=== PATIENT | male | born 1960 | race Caucasian/White ===

== ENCOUNTER 2020-03-16 16:11 | Emergency (ER) | payer OTHER, SELFPAY ==
--- NOTE | ~2020-03-16 | XR_ITS ---
XR hand RT min 3V 03/16/2020 16:43 Indication: Right hand swelling and redness Procedure: 3 views right hand Comparison: 02/25/2015 Findings: No acute fracture or traumatic malalignment. There are degenerative changes of the first MC P joint. There is a side plate and screws transfixing the distal radius. There is an ulnar styloid av ulsion fracture which is chronic. No focal soft tissue abnormality. No radiopaque foreign bodies. Impression: 1: No acute bone or joint abnormality. Reviewed, dictated and finalized at location A. Impression: 1: No acute bone or joint abnormality.
[2020-03-16 16:26] VITALS: BP 111/73; PULSE 120; RESP 18; TEMP 36.4; O2SAT 98
--- NOTE | 2020-03-16 16:31 | ED.UPPEXIN ---
HPI - Extremity Injury (Upper) General Chief Complaint: Extremity Injury, Upper Stated Complaint: swollen right hand Time Seen by Provider: 03/16/20 16:32 Source: patient and RN notes reviewed Mode of arrival: ambulatory Limitations: no limitations History of Present Illness HPI narrative: 59-year-old male presents with concern for right hand swelling, redness, pain. He reports he noticed that after working in his barn, is unsure if he injured himself or was bitten by something. Reports swelling in digits, dorsal aspect of hand. Denies fever, malaise MD complaint: injury to: right and hand Related Data Home Medications Medication Instructions Recorded Confirmed lisinopril 5 mg PO DAILY 03/16/20 03/16/20 Allergies Allergy/AdvReac Type Severity Reaction Status Date / Time No Known Allergies Allergy Verified 03/16/20 17:07 Review of Systems Review of Systems: Narrative: CONSTITUTIONAL: Denies malaise, chills, sweats, or fever. CARDIOVASCULAR: Denies chest pain, palpitations RESPIRATORY: Denies cough or dyspnea. GASTROINTESTINAL: Denies abdominal pain, nausea, vomiting, diarrhea SKIN: Reports redness, swelling of the right hand MUSCULOSKELETAL: Reports right hand pain NEUROLOGIC: Denies numbness, weakness. All systems reviewed & are unremarkable except as noted in HPI and below PMFSH Social History Social History (System 02/14/20 @ 10:27 by Erin Remy) Smoking status: Current every day smoker Alcohol intake: current Gender identity (if verbalized by the patient): Male Comments At time of signature, agree with nursing past medical, surgical, social and family history. There is no relevant family history pertinent to the presenting complaint Exam Narrative: Exam Narrative: GENERAL: Well-appearing, well-nourished, and in no acute distress. HEAD: Normocephalic EYES: PERRLA, conjunctivae clear NECK: Supple. CHEST: Speaks in full sentences. No respiratory distress. HEART: Regular rate and rhythm. Normal and equal peripheral pulses. EXTREMITIES: Right hand and digits of hand have normal strength and sensation. 5/5 strength with digit flexion, extension. Range of motion normal. No clubbing, cyanosis noted. Dorsal tenderness, particularly at the base of the second digit of the right hand. Normal digital cascade with flexion of fingers, median, ulnar and radial nerve intact. Normal sensation of each side of finger. Can perform 'okay' sign, 'cross over finger test of index and middle fingers' and 'thumbs up' sign. No scissoring. Normal thumb opposition. Good capillary refill and radial pulse. Distal capillary refill <3 seconds. SKIN: Swelling, edema with fluctuation noted above the base of the second digit of the right hand. Erythema with swelling noted to the dorsal aspect of the hand digits 1, 2, 3, 4, 5 NEURO: Alert and oriented x3. PSYCH: Normal mood and affect Course Course Emergency Course: Patient is aware of diagnosis, understands and agrees to treatment plan. Anticipatory guidance given. Patient agrees to follow-up as directed and is aware of reasons to seek care at the emergency department. Portions of this record may have been created with voice recognition software Vital Signs Vital signs: Vital Signs Temperature 97.6 F 03/16/20 16:26 Pulse Rate 120 H 03/16/20 16:26 Respiratory Rate 18 03/16/20 16:26 Blood Pressure 111/73 03/16/20 16:26 Pulse Oximetry 98 03/16/20 16:26 Temperature 97.6 F 03/16/20 16:26 Pulse Rate 120 H 03/16/20 16:26 Respiratory Rate 18 03/16/20 16:26 Blood Pressure 111/73 03/16/20 16:26 Pulse Oximetry 98 03/16/20 16:26 Reviewed. Procedures Abscess I/D hand: Date of Incision: 03/16/20 Time of Incision: 16:50 Side (if applicable): right Local Anesthetic: lidocaine 1% Amount of anesthesia used (mL): 2 Technique: incised with #11 blade Amount of fluid expressed (mL): 4 Irrigation:
== END 2020-03-16 17:34 | disposition home or self-care (01) ==
PROVIDERS: Emergency Provider Nurse Practitioner
DX: L03.113 Cellulitis of right upper limb (principal); L02.511 Cutaneous abscess of right hand; F17.200 Nicotine dependence, unspecified, uncomplicated; I10 Essential (primary) hypertension
CPT/HCPCS: 10061; 73130; 87070; 87147; 87186; 87205; 99213; G0463